=== PATIENT | female | born 1995 | race Caucasian/White ===

== ENCOUNTER 2023-02-07 15:08 | Emergency (ER) | payer MEDICAID, SELFPAY ==
[2023-02-07 15:29] VITALS: BP 151/100; PULSE 67; RESP 17; TEMP 37.1; O2SAT 100; BMI 35.1
--- NOTE | 2023-02-07 15:48 | ED_ITS ---
HPI - Abdominal Pain General: Chief Complaint: Abdominal Pain Stated Complaint: abd pains Time Seen by Provider: 02/07/23 15:38 Source: patient Mode of arrival: ambulatory History of Present Illness: 27-year-old female who presents to the emergency room with complaints of right upper quadrant abdominal pain this abdomen is gone for couple months worse in the last week. She has been nauseous had a couple episodes of vomiting. Eating seems to make it worse. Radiates into her back. No hematemesis or coffee- ground emesis no fever sweats or chills. She states at first time she is gone from constipation to diarrhea. MD elicited complaint: abdominal pain Onset (ago): month(s) (2) Pain Consistency: intermittent Location: RUQ Severity: moderate Quality: cramping Radiation: none Exacerbating factors: nothing Relieving factors: nothing Associated Symptoms: Reports change in stool character, GI cramping, diarrhea (Very), loose stools, nausea, poor appetite and vomiting; Denies anorexia, belching, bloating, change in bowel habits, chills, coffee ground emesis, constipation, dyspepsia, dysuria, excessive flatus, fever(s), heartburn, hematochezia, hematuria, hematemesis, fecal incontinence, melena and syncope Review of Systems Const: Denies: fever(s) or chills ENMT: Denies: throat pain, ear or mastoid pain, nasal discharge or nasal c ongestion Card: Denies: syncope Resp: Denies: dyspnea, productive cough or non-productive cough GI: Reports: nausea, vomiting, diarrhea (Very), GI cramping and change in stool character; Denies: hematemesis, coffee ground emesis, heartburn, constipation, bloating, belching, excessive flatus, fecal incontinence, change in bowel habits, hematochezia or melena : Denies: dysuria or hematuria Skin/Breast: Denies: rash or pruritus PFSH ED PFSH: Family History Father Hypertension Social History Smoking and tobacco status: current every day smoker cigarettes Packs smoked per day: 0.5 Physical Exam Const: GENERAL APPEARANCE: cooperative and comfortable ORIENTATION/CONSCIOUSNESS: Yes awake, Yes oriented to person, Yes oriented to place and Yes oriented to time HENMT: COMMON NORMALS: normocephalic, atraumatic and hearing grossly normal bilaterally HEAD & SCALP: normocephalic and atraumatic Resp: COMMON NORMALS: normal respiratory effort, No retractions, No use of accessory muscles and clear to auscultation bilaterally AUSCULTATION: clear to auscultation bilaterally Cardio: COMMON NORMALS: regular rate, regular rhythm and No murmurs present (Cardio) RATE: regular rate RHYTHM: regular rhythm GI: COMMON NORMALS: Soft to palpation and No hepatosplenomegaly present AUSCULTATION: Yes normoactive bowel sounds PALPATION: Yes Soft to palpation, No Tenderness to palpation present (GI), No Guarding due to palpation present (GI) and Yes No hepatosplenomegaly present Extremity: COMMON NORMALS: normal to inspection, capillary refill normal, no clubbing, cyanosis or edema, no calf tenderness and no pedal edema Neuro: SENSORIUM/ORIENTATION: Yes oriented to person, Yes oriented to place and Yes oriented to time Skin: COMMON NORMALS: no rashes or lesions noted GENERAL SKIN EXAM: no rashes or lesions noted Course Vital Signs: Vital signs: Vital Signs Temperature 98.7 F 02/07/23 15:29 Pulse Rate 60 02/07/23 18:07 Respiratory Rate 17 02/07/23 15:29 Blood Pressure 171/98 02/07/23 18:07 Pulse Oximetry 100 02/07/23 18:07 Oxygen Delivery Me thod Room Air 02/07/23 15:29 MDM - Abdominal Pain Medical Decision Making Labs reviewed no significant leukocytosis no elevations of transaminases. She has a negative Stark sign and nonacute abdomen. UA unremarkable as well. No evidence of nephrolithiasis or cystitis. Abdomen nonacute at this time does not believe she has acute cholecystitis or appendicitis. Suspect given her history she may have biliary colic likely from biliary dyskinesia. Discharge patient home. Recommend she keep the outpatient ultrasound of the liver and gallbladder, suspect she will need a HIDA scan. Follow-up with her Primary care doctor if she has worsening or change symptoms she can return to the emergency room. Medical Records I reviewed the patient's medical records. Lab Data I reviewed the patient's lab results. 02/07/23 16:17 02/07/23 16:17 Labs/Radiology: Laboratory Results WBC 11.2 10^3/uL (4.0-10.0) H 02/07/23 16:17 RBC 4.75 10^6/uL (4.1-5.3) 02/07/23 16:17 Hgb 13.6 g/dL (11.5-15.3) 02/07/23 16:17 Hct 42.7 % (37.0-47.0) 02/07/23 16:17 MCV 89.9 fl (81-99) 02/07/23 16:17 MCH 28.6 pg (28.0-34.0) 02/07/23 16:17 MCHC 31.9 g/dL (30.0-36.0) 02/07/23 16:17 RDW 13.2 % (12.1-15.1) 02/07/23 16:17 Plt Count 216 10^3/cmm (130-400) 02/07/23 16:17 MPV 13.0 fL (7.4-10.4) H 02/07/23 16:17 Neut % (Auto) 72.7 % 02/07/23 16:17 Lymph % (Auto) 19.3 % 02/07/23 16:17 Sunflower % (Auto) 5.5 % 02/07/23 16:17 Eos % (Auto) 1.9 % 02/07/23 16:17 Baso % (Auto) 0.3 % 02/07/23 16:17 Neut # (Auto) 8.13 10^3/uL (1.8-7.7) H 02/07/23 16:17 Lymph # (Auto) 2.2 10^3/uL (0.8-4.8) 02/07/23 16:17 Sunflower # (Auto) 0.6 10^3/uL (0.2-0.9) 02/07/23 16:17 Eos # (Auto) 0.2 10^3/uL (0.0-0.8) 02/07/23 16:17 Baso # (Auto) 0.0 10^3/uL (0.0-0.1) 02/07/23 16:17 Nucleated RBC % (auto) 0 % 02/07/23 16:17 Nucleated RBCs # 0.0 /100WBC 02/07/23 16:17 Sodium 140 mmol/L (136-145) 02/07/23 16:17 Potassium 4.0 mmol/L (3.5-5.1) 02/07/23 16:17 Chloride 105 mmol/L (98-107) 02/07/23 16:17 Carbon Dioxide 24 mmol/L (22-29) 02/07/23 16:17 Anion Gap 15.0 (5-19) 02/07/23 16:17 BUN 8 mg/dL (6-20) 02/07/23 16:17 Creatinine 0.9 mg/dL (0.5-0.9) 02/07/23 16:17 GFR Calculation 74.6 mL/min (90-130) L 02/07/23 16:17 Glucose 89 mg/dL (65-115) 02/07/23 16:17 Calculated Osmolality 288 mOsm/kg (285-295) 02/07/23 16:17 Calcium 9.7 mg/dL (8.5-10.5) 02/07/23 16:17 Total Bilirubin 0.7 mg/dL (0.15-1.2) 02/07/23 16:17 AST 18 U/L (0-32) 02/07/23 16:17 ALT 20 U/L (0-33) 02/07/23 16:17 Alkaline Phosphatase 83 U/L (35-105) 02/07/23 16:17 Total Protein 8.0 g/dL (6.6-8.7) 02/07/23 16:17 Albumin 4.8 g/dL (3.5-5.2) 02/07/23 16:17 Globulin 3.2 g/dL (1.3-4.6) 02/07/23 16:17 Lipase 42 U/L (13-60) 02/07/23 16:17 Urine Color Yellow (Yellow) 02/07/23 15:46 Urine Appearance Clear (CLEAR) 02/07/23 15:46 Urine pH 8 (5-7) H 02/07/23 15:46 Ur Specific [place] 1.005 (1.005-1.030) 02/07/23 15:46 Urine Protein Neg (Negative) 02/07/23 15:46 Urine Glucose (UA) Norm (Normal) 02/07/23 15:46 Urine Ketones Negative (Negative) 02/07/23 15:46 Urine Blood Neg (Negative) 02/07/23 15:46 Urine Nitrate Negative (Negative) 02/07/23 15:46 Urine Bilirubin Neg (Negative) 02/07/23 15:46 Prot Sulfosalicylic Acd Negative (Negative) 02/07/23 15:46 Urine Urobilinogen Neg mg/dL (Negative) 02/07/23 15:46 Ur Leukocyte Esterase Trace (Negative) H 02/07/23 15:46 Urine RBC 0-4 /hpf (0-2) H 02/07/23 15:46 Urine WBC 0-4 /hpf (0-5) H 02/07/23 15:46 Ur Squamous Epith Cells 10-15 /hpf (0-5) H 02/07/23 15:46 Amorphous Sediment Not Reportable 02/07/23 15:46 Urine Bacteria Trace /hpf (NONE) 02/07/23 15:46 Urine Mucus 1+ /hpf 02/07/23 15:46 Discharge Plan Discharge Patient Disposition: Home Clinical Impression: Biliary colic Condition: Stable Prescriptions: New pantoprazole 40 mg tablet,delayed release (DR/EC) 40 mg PO DAILY Qty: 20 0RF ondansetron HCl 4 mg tablet 4 mg PO Q6H PRN (Reason: nausea and vomiting) Qty: 20 0RF No Action fluoxetine [Prozac] 40 mg capsule 40 mg PO DAILY medroxyprogesterone [Provera] 10 mg tablet 10 mg PO DAILY Discharge Orders: Discharge ED (Routine); Ordered 02/07/23 Ordered By: Jonathan Read Referrals: Carmen Urena COTA [Primary Care Provider] - Discharge Diet: As Directed Discharge Activity: Resume usual activity Patient Instructions: Biliary Colic (ED), Abdominal Pain (ED), Opioid Safety, Pain Management Activity Restrictions/Additional Instructions: You are seen today in the emergency room for right upper quadrant abdominal pain your white count and your liver enzymes and bilirubin were normal. Recommend a bland diet avoid spicy foods tomato-based products red meats and fried foods. Start pantoprazole once daily. And you can use Zofran as needed for nausea. Keep the scheduled appointment for the gallbladder ultrasound next week. Return if you have further problems. Coding Level of Care Code ED Public Health Specialist for Linng Janina
[2023-02-07 16:10] LABS: Glucose Urine UA Norm (Normal); Protein Urine Neg (Negative); Specific Gravity, Urine 1.005 (1.005-1.030); Urine Appearance Clear (CLEAR); Urine Color Yellow (Yellow); pH Urine 8 (5-7)
[2023-02-07 16:11] LABS: Add Urine Microscopic? YES; Bilirubin Urine Neg (Negative); Blood Urine Neg (Negative); Ketones Urine Negative (Negative); Leukocyte Esterase Urine Trace (Negative); Nitrate Urine Negative (Negative); Sulfosalicylic Acid Urine Negative (Negative); Urobilinogen Urine Neg (Negative)
[2023-02-07 16:12] LABS: Add Urine Culture? No; Bacteria Urine TRACE /hpf; Mucus Urine 1+ /hpf; RBC Urine 0-4 /hpf (0-2); WBC Urine 0-4 /hpf (0-5)
[2023-02-07] MEDS: ondansetron 2 mg/ML SDV 2 mL 4 MG IVP (16:21)
[2023-02-07] MEDS: sodium chloride 0.9% 1,000 ML 999 ML IV (16:21)
[2023-02-07 16:24] VITALS: BP 141/80; PULSE 58; O2SAT 100
[2023-02-07 16:27] LABS: Basophils % 0.3 %; Eosinophils # 0.2 10^3/uL (0.0-0.8); Eosinophils % 1.9 %; Hematocrit 42.7 % (37.0-47.0); Hemoglobin 13.6 g/dL (11.5-15.3); Lymphocytes # 2.2 10^3/uL (0.8-4.8); Lymphocytes % 19.3 %; Mean Corpuscular HGB Conc 31.9 g/dL (30.0-36.0); Mean Corpuscular Hemoglobin 28.6 pg (28.0-34.0); Mean Corpuscular Volume 89.9 fl (81-99); Monocytes # 0.6 10^3/uL (0.2-0.9); Monocytes % 5.5 %; Neutrophils # 8.13 10^3/uL (1.8-7.7); Neutrophils % 72.7 %; Nucleated Red Blood Cells % 0 %; Platelet Count 216 10^3/cmm (130-400); Red Blood Count 4.75 10^6/uL (4.1-5.3); Red Cell Distribution Width 13.2 % (12.1-15.1); White Blood Count 11.2 10^3/uL (4.0-10.0)
[2023-02-07 16:52] LABS: Alanine Aminotransferase 20 U/L (0-33); Albumin Level 4.8 g/dL (3.5-5.2); Alkaline Phosphatase 83 U/L (35-105); Aspartate Amino Transferase 18 U/L (0-32); Blood Urea Nitrogen 8 mg/dL (6-20); Calcium 9.7 mg/dL (8.5-10.5); Carbon Dioxide 24 mmol/L (22-29); Chloride 105 mmol/L (98-107); Globulin 3.2 g/dL (1.3-4.6); Glomerular Filtration Rate 74.6 mL/min (90-130); Glucose 89 mg/dL (65-115); Lipase 42 U/L (13-60); Osmolality Calculated 288 mOsm/kg (285-295); Sodium 140 mmol/L (136-145); Total Bilirubin 0.7 mg/dL (0.15-1.2)
[2023-02-07 17:17] VITALS: BP 160/98; O2SAT 100
[2023-02-07 17:58] VITALS: BP 164/95; O2SAT 99
[2023-02-07 18:07] VITALS: BP 171/98; PULSE 60; O2SAT 100
== END 2023-02-07 18:08 | disposition home or self-care (01) ==
PROVIDERS: Emergency Provider Family Medicine; PCP Occupational Therapy Assistant
DX: K80.50 Calculus of bile duct without cholangitis or cholecystitis without obstruction (principal); F17.210 Nicotine dependence, cigarettes, uncomplicated
CPT/HCPCS: 80053; 81001; 83690; 85025; 96361; 96374; 99284; J2405; J7030

== ENCOUNTER 2023-06-02 11:40 | Outpatient (CLI) | payer MEDICAID, SELFPAY ==
--- NOTE | 2023-06-02 12:15 | USCV_ITS ---
Tamara Winslow Age: 27 Gender: F : 1995 Exam Date: 06/02/2023 12:22 Ordering Phys: Michael Casanova MD ([email or web address]) Technologist: Bertha Whitmore [place] [facility] [place]: palpitations SQUIRES,, BP: 130 / 85 HR: 57 Rhythm: Sinus Technical Quality: Good MEASUREMENTS (Male / Female) Normal Values 2D ECHO LV Diastolic Diameter PLAX 4.2 cm 4.2 - 5.9 / 3.9 - 5.3 cm LV Systolic Diameter PLAX 2.5 cm IVS Diastolic Thickness 0.6 cm 0.6 - 1.0 / 0.6 - 0.9 cm IVS Systolic Thickness 1.0 cm LVPW Diastolic Thickness 0.9 cm 0.6 - 1.0 / 0.6 - 0.9 cm LVPW Systolic Thickness 1.6 cm LVOT Diameter 2.0 cm LV Ejection Fraction 2D Teich 70.6 % LV Ejection Fraction MOD 2C 55.6 % LV Ejection Fraction 2C AL 56.4 % LA Diameter 2.6 cm LA Width 2.9 cm LA Height 4.1 cm RA Width 3.4 cm RA Height 3.9 cm Aorta at Sinotubular Diameter 2.6 cm IVC Diameter 1.2 cm M-MODE Aortic Annulus Diameter 3.0 cm LA Ao Ratio MM 1.0 MV E Point Septal Separation 0.9 cm DOPPLER AV Peak Velocity 126.0 cm/s LVOT Peak Velocity 110.0 cm/s AV Area Cont Eq vti 2.6 cm squared AV Area Cont Eq pk 2.8 cm squared MV Peak Velocity 108.0 cm/s MV Area PHT 3.9 cm squared Mitral E to A Ratio 1.7 MV E' Velocity 48.0 cm/s Mitral E to MV E' Ratio 5.3 Mitral E to LV E' Lateral Ratio 4.2 Mitral E to LV E' Septal Ratio 7.2 TR Peak Velocity 145.6 cm/s TR Peak Gradient 8.5 mmHg Right Atrial Pressure 5.0 mmHg Pulmonary Artery Systolic Pressu 13.5 mmHg PV Peak Velocity 113.0 cm/s RV Acceleration Time 0.1 s RV Ejection Time 0.3 s RV AcT/ET 0.4 FINDINGS Left Ventricle Normal left ventricular size and systolic function, EF 61 %. No regional wall motion abnormalities. Right Ventricle The right ventricle is normal in size and function. Right Atrium The right atrium is normal in size. Left Atrium The left atrium is normal in size. Mitral Valve Structurally normal mitral valve. Trace mitral valve regurgitation. Aortic Valve Structurally normal trileaflet aortic valve. Tricuspid Valve Trace tricuspid valve regurgitation. Trace to mild tricuspid valve regurgitation. Pulmonic Valve No gross abnormalities noted Pericardium Normal pericardium without effusion. Aorta Normal ascending aorta dimension. IVC The inferior vena cava appears normal. CONCLUSIONS Normal left ventricular size and systolic function, EF 61 %. No regional wall motion abnormalities. Normal cardiac chamber sizes. No gross valvular abnormalities. Trace tricuspid valve regurgitation. There is no pericardial effusion. There are no intracardiac masses. No similar previous studies are available for comparison Dr Michael Casanova MD FACC (Electronically Signed) Final Date: 04 June 2023 09:51 S
== END 2023-06-02 11:41 | disposition home or self-care (01) ==
PROVIDERS: PCP Occupational Therapy Assistant; Visit Provider Internal Medicine Cardiovascular Disease
DX: R06.09 Other forms of dyspnea (principal); R00.2 Palpitations
CPT/HCPCS: 93306

== ENCOUNTER 2024-01-01 11:56 | Outpatient (CLI) | payer MEDICAID, SELFPAY ==
--- NOTE | 2024-01-01 12:04 | MR_ITS ---
NOTE: Report was unsigned for reason: Ordering provider was edited. Original Signature date and time was: 12/12/23 @1325 WS: [id number] MRI BRAIN WITHOUT CONTRAST HISTORY: HEADACHE COMPARISON: None available. TECHNIQUE: Diffusion imaging, multiplanar T1, T2 and FLAIR imaging obtained. No evidence for acute infarct or hemorrhage. Garcia-white matter differentiation is normal. No remote or acute infarcts are volume loss. Ventricles and extra-axial spaces are normal. No inferior displacement of cerebellar tonsils. The sella turcica and pituitary gland are unremarkable. Dural venous sinuses and [place] demonstrate no abnormality on this unenhanced studies. Paranasal sinuses: Clear. Mastoid air cells: Normal. Calvarium and scalp: Intact. IMPRESSION: 1. Unremarkable noncontrast MRI brain. MTDD
== END 2024-01-01 11:57 | disposition home or self-care (01) ==
LOC: RAD 11:57
PROVIDERS: PCP Occupational Therapy Assistant; Visit Provider Occupational Therapy Assistant
DX: R51.9 Headache, unspecified (principal)
CPT/HCPCS: 70551

== ENCOUNTER → 2024-12-13 16:20 | Outpatient (BNVA) | payer MEDICAID, SELFPAY | PROVIDERS: PCP Occupational Therapy Assistant; Visit Provider Nurse Practitioner | DX: J10.1 Influenza due to other identified influenza virus with other respiratory manifestations (principal) | CPT/HCPCS: 87400; 87880 ==

== ENCOUNTER → 2025-01-17 15:10 | Outpatient (BNVA) | payer MEDICAID, SELFPAY | PROVIDERS: PCP Occupational Therapy Assistant; Visit Provider Nurse Practitioner | DX: J02.9 Acute pharyngitis, unspecified (principal) | CPT/HCPCS: 87880 ==